=== PATIENT | female | born 1955 | race Caucasian/White ===

== ENCOUNTER → 2017-03-23 | Outpatient (CLI) | payer BC ==
--- NOTE | 2017-03-23 11:11 | US ---
EXAMINATION TYPE: US gallbladder DATE OF EXAM: 03/23/2017 COMPARISON: NONE CLINICAL HISTORY: R10.9 ABD PAIN. Pt states on/off RUQ pain EXAM MEASUREMENTS: Liver Length: 16.8 cm Gallbladder Wall: 0.2 cm CBD: 0.4 cm Right Kidney: 12.3 x 4.4 x 4.7 cm Large pt body habitus Pancreas: wnl, tail obscured by overlying bowel gas Liver: Upper limits of normal for size, heterogeneous Gallbladder: wnl Evidence for sonographic Wayne's sign: No CBD: wnl Right Kidney: wnl Limited views of the pancreas are unremarkable. The liver is upper limits of normal in size. Echogenic and likely fatty infiltrated. The gallbladder is normal. The gallbladder wall measures 2 mm. The distal common hepatic duct measure s 4 mm. The right kidney is normal. The intrahepatic IVC is normal. IMPRESSION: Probable fatty infiltration of the liver.
== END | disposition home or self-care (01) ==
LOC: RADUSWWP 10:37
PROVIDERS: ATTEND Family Medicine
DX: R10.9 Unspecified abdominal pain (principal)
CPT/HCPCS: 76705

== ENCOUNTER → 2017-04-09 | Outpatient (CLI) | payer BC ==
--- NOTE | 2017-04-09 14:48 | NM ---
EXAMINATION TYPE: NM hepatobiliary w EF DATE OF EXAM: 04/09/2017 COMPARISON: Gallbladder ultrasound March 23, 2017 HISTORY: Unspecified abdominal pain per order. Epigastric pain with heartburn and reflux-like symptom s per patient TECHNIQUE: After the intravenous administration of 5.48 mCi Tc 99m Mebrofenin hepatobiliary scintigra phy is performed. Immediate images post injection. FINDINGS: There is satisfactory initial accumulation of tracer by the liver. The gallbladder is visualized wit hin 30 minutes. The small bowel activity is noted within 20 minutes. At one hour 8 ounces of oral e nsure plus is given to mimic CCK and gallbladder ejection fraction is calculated at 86 %, not deviate d from the normal range. Therefore there is no scintigraphic evidence of cystic or common bile duct obstruction to suggest acute cholecystitis . IMPRESSION: Ejection fraction is 86%, some consider this abnormal or a hyperkinetic response.
== END ==
LOC: RADNMMAIN 12:33
PROVIDERS: ATTEND Family Medicine
DX: R10.9 Unspecified abdominal pain (principal)
CPT/HCPCS: 78226; A9537

== ENCOUNTER → 2018-06-07 | Outpatient (CLI) | payer BC ==
--- NOTE | 2018-06-07 17:31 | US ---
EXAMINATION TYPE: US thyroid st tissue head/neck DATE OF EXAM: 06/07/2018 COMPARISON: NONE CLINICAL HISTORY: E04.1 THYROID NODULE. GLAND SIZE: Right Lobe: 4.5 x1.3 x 1.5 cm Overall Parenchyma: heterogenous Left Lobe: 3.1 x 1.0 x 1.1 cm Overall Parenchyma: heterogeneous Isthmus Thickness: 0.4 cm NODULES RIGHT: # of nodules 0 :LEFT: # of nodules measured on left: 0 ISTHMUS: # of nodules measured in the isthmus: 0 Bilateral neck scanned, no evidence of lymphadenopathy. At the inferior aspect of the right lobe of the thyroid gland I hypoechoic focus measuring 9 mm in gr eatest dimension could represent parathyroid gland. IMPRESSION: The gland is atrophic and heterogeneous, consider underlying thyroiditis. Additional findings above.
== END | disposition home or self-care (01) ==
LOC: RADUSWWP 14:11
PROVIDERS: ATTEND Family Medicine
DX: E03.4 Atrophy of thyroid (acquired) (principal)
CPT/HCPCS: 76536

== ENCOUNTER → 2022-03-23 | Outpatient (CLI) | payer MEDICARE ==
--- NOTE | 2022-03-24 19:47 | MM ---
Reason for Exam: Screening (asymptomatic). Last mammogram was performed 20 year(s) and 0 month(s) ago. Patient History: Menarche at age 9. First Full-Term at age 19. Postmenopausal. Risk Values: Nasra 5 year model risk: 1.3%. NCI Lifetime model risk: 4.6%. Prior Study Comparison: No prior studies available for comparison. Tissue Density: There are scattered fibroglandular densities. Findings: Analyzed By CAD. Grouped microcalcifications far posterior central left MLO view for which further magnification views are recommended. There is bilateral circumscribed nodularity, largest located in the left upper outer quadrant at a middle depth. The overall pattern is benign. Ultrasound can further evaluate these largest nodules. Additional scattered benign round calcifications on both sides. Overall Assessment: Incomplete: need additional imaging evaluation, BI-RAD 0 Management: Special View Mammogram of the left breast. Diagnostic Breast Ultrasound of the left breast. 1. Additional views left breast to include 3-D lateral, mag lateral, magnified MLO (if mag lateral not possible), 3-D XCCL, and 3-D XCCM views for the microcalcifications. 2. Upper outer quadrant left breast ultrasound for 2 adjacent nodules measuring up to 1.2 cm, possible cysts. Electronically signed and approved by: Sinai Elmore M.D. Radiologist
== END | disposition home or self-care (01) ==
LOC: RADMAMWWP 13:34
PROVIDERS: ATTEND Family Medicine
DX: Z12.31 Encounter for screening mammogram for malignant neoplasm of breast (principal); Z78.0 Asymptomatic menopausal state
CPT/HCPCS: 77063; 77067

== ENCOUNTER → 2022-03-30 | Outpatient (CLI) | payer MEDICARE ==
--- NOTE | 2022-03-31 11:11 | USB ---
Reason for Exam: Additional evaluation requested from abnormal screening. Last screening mammogram was performed less than 1 month ago. Patient History: Menarche at age 9. First Full-Term at age 19. Postmenopausal. Risk Values: Nasra 5 year model risk: 1.3%. NCI Lifetime model risk: 4.6%. Prior Study Comparison: 03/23/2022 Bilateral MG 3D screening mammo w/cad, [facility]. Tissue Density: Left: There are scattered fibroglandular densities. Findings: Analyzed By CAD. Branching calcifications far posterior left breast require further evaluation with tissue diagnosis. Stereotactic core biopsy recommended. Bilobed nodules upper outer left breast. Recommend ultrasound. Findings: 2 lymph nodes are noted upper outer left breast. No suspicious solid or cystic nodule seen. Overall Assessment: Suspicious, BI-RAD 4 Assessment: MG 3D work up w/cad LT - Left: Suspicious, BI-RAD 4. US breast workup limited LT - Left: Benign, BI-RAD 2. Management: Stereotactic Core Biopsy of the left breast. A clinical breast exam by your physician is recommended on an annual basis and results should be correlated with mammographic findings. Results were given to the patient verbally at the time of exam. Electronically signed and approved by: Johan Bryant M.D. Radiologis
== END | disposition home or self-care (01) ==
LOC: RADMAMWWP 13:33
PROVIDERS: ATTEND Family Medicine
DX: R92.1 Mammographic calcification found on diagnostic imaging of breast (principal); Z78.0 Asymptomatic menopausal state
CPT/HCPCS: 77065; 76642; G0279; 77061

== ENCOUNTER → 2022-04-03 | Outpatient (CLI) | payer MEDICARE ==
--- NOTE | 2022-04-04 04:55 | MR ---
EXAMINATION TYPE: MR lumbar spine wo con DATE OF EXAM: 04/03/2022 COMPARISON: None HISTORY: Low back pain since 2015 that radiates down left leg. Multiplanar multi echo imaging of the lumbar spine with no contrast. The vertebrae have fairly normal alignment. There is degenerative disc space narrowing and decreased signal in the disks from L2 to L5. No compression fracture. There is no lumbar paraspinal mass. The u pper sacroiliac joints are intact. There is decreased signal in the left lateral mass of the sacrum a djacent to the sacroiliac joint on the T1 and T2 images. This could be some osteosclerosis. There is no evidence of any significant spinal stenosis. There are small posterior disc bulges from L 1 to L5. IMPRESSION: Multilevel spondylotic changes and minimal disc bulging. No significant spinal stenosis. No compressi on fracture. No significant neural foraminal impingement.
== END | disposition home or self-care (01) ==
LOC: RADMRIMAIN 16:15
PROVIDERS: ATTEND Physical Medicine & Rehabilitation
DX: G62.9 Polyneuropathy, unspecified (principal); R20.2 Paresthesia of skin; M48.07 Spinal stenosis, lumbosacral region
CPT/HCPCS: 72148

== ENCOUNTER → 2022-04-06 | Day surgery (SDC) | payer MEDICARE ==
[2022-04-06 10:14] VITALS: RESP 16
[2022-04-06 11:12] VITALS: BP 150/90; PULSE 71; TEMP 98.1
--- NOTE | 2022-04-09 11:49 | MM ---
Risk Values: Nasra 5 year model risk: 1.3%. NCI Lifetime model risk: 4.6%. Prior Study Comparison: 03/23/2022 Bilateral MG 3D screening mammo w/cad, [facility]. 03/30/2022 Left MG 3D work up w/cad , [facility]. Pathology Description: Marker Left Behind. Specimen Radiograph. Approach: Medial to Lateral Needle Type: Eviva Cores: 6 Skin Nicks: 1 Gauge: 9 securemark clip The procedure of stereotactic guided core biopsy was explained to the patient. Benefits, alternatives, and risks were discussed. An informed consent was then obtained. A timeout was performed. The [facility] pathway for biopsy was chosen. [facility] pathway was yielded approach. Targeting the procedure were performed by radiology. A vacuum assisted biopsy device was used to obtain 6 core samples. The patient tolerated the procedure well without any immediate complication. The patient was kept in the radiology department for short stay after the procedure and then discharged home in stable condition. Specimen: Targeted calcifications are identified in specimen mammogram. Postprocedure mammogram: Post biopsy mammogram shows the clip to appear in satisfactory position relative to the targeted area of concern on the preprocedure images. Impression: 1. Successful stereotactic core biopsy left breast calcifications. Pathology Results: Result: Benign. LEFT BREAST, CORE BIOPSY: Benign fibroadipose tissue with focally calcified osseous metaplasia. Focal benign skeletal muscle present. Overall Assessment: Benign Management: Diagnostic Mammogram of the left breast in 6 months. Electronically signed and approved by: Rajat Wheeler D.O. Radiologis
== END ==
LOC: RADMAMWWP 10:00
PROVIDERS: ATTEND Family Medicine
DX: R92.1 Mammographic calcification found on diagnostic imaging of breast (principal); R92.8 Other abnormal and inconclusive findings on diagnostic imaging of breast
CPT/HCPCS: 88305; 19081; A4648; J2001